=== PATIENT | female | born 1970 | race Caucasian/White ===

== ENCOUNTER → 2023-04-25 06:23 | Day surgery (SDC) | payer BC, SELFPAY | LOC: GI 06:23 | PROVIDERS: ATTENDING PHYSICIAN Internal Medicine Gastroenterology; FAMILY PHYSICIAN Physician Assistant Medical | DX: K29.50 Unspecified chronic gastritis without bleeding (principal); K20.0 Eosinophilic esophagitis; K22.89 Other specified disease of esophagus; R13.10 Dysphagia, unspecified | CPT/HCPCS: 43239; 88305; 88341; 88342 ==

== ENCOUNTER → 2023-05-10 11:34 | Outpatient (REF) | payer BC, SELFPAY | LOC: WDC 11:34 | PROVIDERS: ATTENDING PHYSICIAN Obstetrics & Gynecology; FAMILY PHYSICIAN Physician Assistant Medical | DX: Z12.31 Encounter for screening mammogram for malignant neoplasm of breast (principal) | CPT/HCPCS: 77063; 77067 ==

== ENCOUNTER 2023-09-25 06:24 | Day surgery (SDC) | payer BC, SELFPAY ==
[2023-09-25 09:00] VITALS: BP 112/76; BMI 21.9
[2023-09-25 09:43] VITALS: BMI 21.9
[2023-09-25 11:05] VITALS: BP 107/65
[2023-09-25 11:15] VITALS: BP 102/71
[2023-09-25 11:28] VITALS: BP 115/84
== END 2023-09-25 11:40 | disposition home or self-care (01) ==
LOC: SDS 06:24
PROVIDERS: ATTENDING PHYSICIAN Internal Medicine Gastroenterology
DX: K20.0 Eosinophilic esophagitis (principal)
CPT/HCPCS: 43239; 88305

== ENCOUNTER → 2023-11-23 06:23 | Day surgery (SDC) | payer BC, SELFPAY | LOC: GI 06:23 | PROVIDERS: ATTENDING PHYSICIAN Internal Medicine Gastroenterology; FAMILY PHYSICIAN Physician Assistant Medical | DX: R22.2 Localized swelling, mass and lump, trunk (principal); Z87.19 Personal history of other diseases of the digestive system | CPT/HCPCS: 43239; 88305 ==

== ENCOUNTER → 2024-02-01 06:28 | Day surgery (SDC) | payer BC, SELFPAY ==
[2024-01-16 09:36] VITALS: BMI 19.8
[2024-01-16 11:06] LABS: Hematocrit 40.4 % (37.0-47.0); Hemoglobin 13.7 g/dL (12.0-16.0); Mean Corp Hgb Conc. 33.9 g/dL (33.0-37.0); Mean Corpuscular Hgb 30.5 pg (27.0-31.0); Mean Platelet Volume 11.5 fL (7.4-10.4); Platelet Count 196 10^3/uL (130-400); Red Blood Cell Count 4.49 10^6/uL (4.20-5.40); White Blood Cell Count 4.5 10^3/uL (4.8-10.8)
[2024-01-16 11:18] LABS: Blood Urea Nitrogen 13 mg/dl (7-17); Calcium 9.9 mg/dl (8.4-10.2); Carbon Dioxide 30 mmol/L (22-30); Chloride 101 mmol/L (98-107); Estimated Creatinine Clearance 66 ml/min; Glucose 90 mg/dl (70-99); Potassium 4.2 mmol/L (3.5-5.1); Sodium 141 mmol/L (135-145); eGFR > 60.00
[2024-02-01 12:12] VITALS: BMI 19.8
[2024-02-01 12:20] VITALS: BP 108/70
[2024-02-01 12:24] VITALS: BMI 19.8
--- NOTE | 2024-02-01 12:46 | SUR.OPER ---
Patient has a [employer] walking shoe that she brought in for post op. It is in patients bag for post op. Will monitor patient.
[2024-02-01 14:51] VITALS: BP 97/58
[2024-02-01 14:55] VITALS: BP 97/58; BP_SYST 16
[2024-02-01 15:00] VITALS: BP 98/56; BP_SYST 15
[2024-02-01 15:11] VITALS: BP 102/62; BP_SYST 17
[2024-02-01] MEDS: ROXICODONE 5 MG PO (15:45)
[2024-02-01] MEDS: MOTRIN 600 MG PO (15:45)
== END ==
LOC: SDS 06:28
PROVIDERS: ATTENDING PHYSICIAN Podiatrist Foot & Ankle Surgery; FAMILY PHYSICIAN Physician Assistant Medical
DX: M20.5X2 Other deformities of toe(s) (acquired), left foot (principal); M25.572 Pain in left ankle and joints of left foot; M20.22 Hallux rigidus, left foot
CPT/HCPCS: 28292; 88304; 88311; 36415; 80048; 85027

== ENCOUNTER → 2024-05-15 09:43 | Outpatient (REF) | payer BC, SELFPAY | LOC: WDC 09:43 | PROVIDERS: ATTENDING PHYSICIAN Obstetrics & Gynecology; FAMILY PHYSICIAN Physician Assistant Medical | DX: Z00.00 Encounter for general adult medical examination without abnormal findings (principal); Z12.31 Encounter for screening mammogram for malignant neoplasm of breast | CPT/HCPCS: 77063; 77067; 77080 ==